=== PATIENT | male | born 1980 | race Caucasian/White ===

== ENCOUNTER 2020-12-31 08:58 | Emergency (ER) | payer OTHER ==
[2020-12-31] MEDS ORDERED: PREDNISONE 20MG20 MG PO (11:29)
[2020-12-31] MEDS ORDERED: ATARAX25 MG PO (11:29)
== END 2020-12-31 11:55 | disposition home or self-care (01) ==
LOC: FER 08:58
DX: T78.40XA Allergy, unspecified, initial encounter (principal); F17.210 Nicotine dependence, cigarettes, uncomplicated; Z88.0 Allergy status to penicillin; X58.XXXA Exposure to other specified factors, initial encounter
CPT/HCPCS: J1200; J1885; J2930